=== PATIENT | male | born 1985 | race Caucasian/White ===

== ENCOUNTER 2018-10-12 09:22 | Emergency (ER) | payer BC ==
[2018-10-12 11:07] LABS: MONOTEST Negative (NEG)
== END 2018-10-12 11:16 | disposition home or self-care (01) ==
LOC: FTE 11:16
DX: J02.9 Acute pharyngitis, unspecified (principal); E11.9 Type 2 diabetes mellitus without complications
CPT/HCPCS: 36415; 86308; 87880; 99283